=== PATIENT | female | born 1960 | race Asian ===

== ENCOUNTER 2018-06-28 14:59 | Outpatient (CLI) | payer OTHER | END 2018-06-28 23:43 | disposition home or self-care (01) | LOC: MAMMO 14:59 | DX: Z12.31 Encounter for screening mammogram for malignant neoplasm of breast (principal) ==

== ENCOUNTER 2019-07-04 08:12 | Outpatient (CLI) | payer OTHER | END 2019-07-04 23:14 | disposition home or self-care (01) | LOC: MAMMO 08:12 | DX: Z12.31 Encounter for screening mammogram for malignant neoplasm of breast (principal) ==

== ENCOUNTER 2020-02-20 06:09 | Emergency (ER) | payer OTHER ==
[~2020-02-20] VITALS: Ht 160 cm; Wt 90.3 kg
[2020-02-20 07:24] LABS: PLATELET COUNT 305 K/uL (152-353)
[2020-02-20 07:34] LABS: POTASSIUM 4.2 mmol/L (3.6-5.2)
[2020-02-20 08:44] VITALS: BP 126/45; TEMP 97.5
== END 2020-02-20 08:44 | disposition short-term general hospital (02) ==
LOC: ED 06:09
PROVIDERS: Emergency Medicine
DX: K56.2 Volvulus (principal)
CPT/HCPCS: 36415; 80053; 81000; 85027; 96360; 96375; 99284; J1885; J2405

== ENCOUNTER 2021-01-17 10:17 | Emergency (ER) | payer OTHER ==
[~2021-01-17] VITALS: Ht 162.6 cm; Wt 96.6 kg
[2021-01-17 10:28] VITALS: TEMP 97.5
[2021-01-17 11:25] LABS: PLATELET COUNT 338 K/uL (152-353)
[2021-01-17 11:33] LABS: POTASSIUM 4.2 mmol/L (3.6-5.2); SODIUM 139 mmol/L (136-145)
[2021-01-17 13:17] VITALS: BP 171/74
== END 2021-01-17 13:17 | disposition home or self-care (01) ==
LOC: ED 10:17
PROVIDERS: Family Medicine
DX: G45.8 Other transient cerebral ischemic attacks and related syndromes (principal); J30.89 Other allergic rhinitis; J32.8 Other chronic sinusitis; I10 Essential (primary) hypertension
CPT/HCPCS: 80053; 81000; 82550; 82553; 84484; 85027; 93005; 99283

== ENCOUNTER 2022-07-10 08:13 | Outpatient (CLI) | payer OTHER | END 2022-07-10 18:55 | disposition home or self-care (01) | LOC: MAMMO 08:13 | PROVIDERS: ATTEND Internal Medicine | DX: Z12.31 Encounter for screening mammogram for malignant neoplasm of breast (principal) ==

== ENCOUNTER 2023-07-13 08:09 | Outpatient (CLI) | payer OTHER | END 2023-07-13 18:52 | disposition home or self-care (01) | LOC: MAMMO 08:09 | PROVIDERS: ATTEND Internal Medicine | DX: Z12.31 Encounter for screening mammogram for malignant neoplasm of breast (principal) ==